=== PATIENT | female | born 1980 | race African-American/Black ===

== ENCOUNTER 2019-12-05 21:00 | Emergency (ER) | payer SELFPAY ==
[~2019-12-05] VITALS: Ht 160 cm; Wt 95.7 kg
[2019-12-05 21:59] VITALS: BP 132/78; Ht 160 cm; Wt 95.7 kg
== END 2019-12-05 23:10 | disposition home or self-care (01) ==
LOC: D.ER 21:00
DX: S71.142A Puncture wound with foreign body, left thigh, initial encounter (principal); W22.8XXA Striking against or struck by other objects, initial encounter; Y93.9 Activity, unspecified; Y92.9 Unspecified place or not applicable